=== PATIENT | male | born 1985 ===

== ENCOUNTER 2022-10-28 09:52 | Outpatient (CLI) | payer OTHER, SELFPAY ==
[2022-10-28 10:52] LABS: Uric Acid 5.9 mg/dL (3.5-8.5)
[2022-10-28 12:05] LABS: Hepatitis B Surface Antigen Negative (Negative)
[2022-10-28 13:25] LABS: Vitamin D 25 Hydroxy 28.7 ng/mL
[2022-10-28 14:29] LABS: Hepatitis B Surface Anti Res Negative
[2022-10-28 14:30] LABS: Hepatitis C Virus Antibody Negative (Negative)
[2022-10-28 16:48] LABS: Rheumatoid Factor 24.1 IU/ML (<12)
[2022-10-30 22:49] LABS: Lupus dRVVT Screen 37 sec (<=45); PTT-LA Screen 33 sec (<=40)
[2022-10-31 10:51] LABS: SS-A <1.0; SS-B <1.0
[2022-10-31 21:05] LABS: Anti Cyclic Citrullinated Pept 53 Units (<20)
[2022-11-01 09:05] LABS: SM Antibody <1.0; SM/RNP Antibody <1.0
== END 2022-10-28 09:53 | disposition home or self-care (01) ==
PROVIDERS: PCP Internal Medicine; Visit Provider Internal Medicine
DX: M05.79 Rheumatoid arthritis with rheumatoid factor of multiple sites without organ or systems involvement (principal); Z79.899 Other long term (current) drug therapy; Z71.89 Other specified counseling; M19.90 Unspecified osteoarthritis, unspecified site; E55.9 Vitamin D deficiency, unspecified
CPT/HCPCS: 36415; 82306; 84550; 85613; 85730; 86038; 86039; 86200; 86235; 86430; 86706; 86803; 87340

== ENCOUNTER 2023-01-23 08:55 | Outpatient (CLI) | payer OTHER, SELFPAY ==
[2023-01-23 09:23] LABS: Hematocrit 48.4 % (42.0-52.0); Hemoglobin 16.6 g/dL (14.0-18.0); Mean Corpuscular HGB Conc 34.3 g/dl (32-36); Mean Corpuscular Hemoglobin 30.3 pg (26-34); Mean Corpuscular Volume 88.5 fl (80-100); Mean Platelet Volume 8.4 fl (7.4-10.4); Platelet Count Result 350 k/mm3 (150-375); Red Blood Count 5.47 M/mm3 (4.6-6.20); Red Cell Distribution Width 12.5 % (11.5-14.5); White Blood Count 6.4 K/mm3 (4.5-10.0)
[2023-01-23 09:25] LABS: Appearance Urine Clear (Clear); Bilirubin Urine Negative (Negative); Blood Urine Negative (Negative); Color Urine Yellow (Yellow); Glucose Urine UA Negative (Negative); Ketones Urine Negative (Negative); Leukocyte Esterase Ur Negative LEU/UL (Negative); Nitrate Urine Negative (Negative); Protein Urine Negative (Negative); Specific Grav Ur 1.018 (1.001-1.035); Urobilinogen Urine 0.2 mg/dL (<2.0); pH Urine 7.5 (5.0-9.0)
[2023-01-23 09:30] LABS: Add Urine Microscopic? NO
[2023-01-23 09:38] LABS: Alanine Aminotransferase 29 U/L (6-50); Albumin Level 4.7 g/dL (3.5-5.1); Alkaline Phosphatase 69 U/L (38-126); Anion Gap 5 mmol/L (8-16); Aspartate Amino Transferase 26 U/L (17-59); Bilirubin,Total 0.6 mg/dL (0.2-1.3); Blood Urea Nitrogen 19 mg/dL (9-20); CRP 0.8 mg/dL (<1.0); Calcium 9.2 mg/dL (8.4-10.2); Carbon Dioxide 36 mmol/L (22-30); Chloride 99 mmol/L (98-107); Estimated Glomerular Filt Rate > 60; Glucose 148 mg/dL (65-110); Potassium 4.2 mmol/L (3.4-5.0); Sodium 140 mmol/L (137-145)
[2023-01-23 09:49] LABS: Erythrocyte Sedimentation Rate 2 mm/hr (0-20)
[2023-01-23 10:15] LABS: Vitamin D 25 Hydroxy 29.8 ng/mL
== END 2023-01-23 08:56 | disposition home or self-care (01) ==
LOC: ANHLAB 08:57
PROVIDERS: PCP Internal Medicine; Visit Provider Internal Medicine
DX: M05.79 Rheumatoid arthritis with rheumatoid factor of multiple sites without organ or systems involvement (principal); E55.9 Vitamin D deficiency, unspecified; Z79.899 Other long term (current) drug therapy; M19.90 Unspecified osteoarthritis, unspecified site
CPT/HCPCS: 36415; 80053; 81003; 82306; 85027; 85652; 86140